=== PATIENT | male | born 1970 | race Caucasian/White ===

== ENCOUNTER 2025-01-13 09:10 | Emergency (ER) | payer OTHER, SELFPAY ==
--- NOTE | ~2025-01-13 | CT_ITS ---
EXAMINATION: CT lumbar spine wo con DATE: 01/13/2025 10:58 INDICATION: Low back pain and left SI joint pain TECHNIQUE: Computed tomography (CT) of the lumbar spine was performed without intravenous contrast. T he dose-length product was 736.35 mGy-cm. Automated exposure control and iterative reconstruction rivka hnique were employed. COMPARISON: None FINDINGS: Mild dextrocurvature of the lumbar spine. Vertebral body heights are maintained. No signifi cant disc narrowing. Vertebral body heights are maintained. There is grade 1 spondylolisthesis at L5- S1 secondary to bilateral spondylolysis. There are nonobstructing bilateral renal stones. Mild annula r disc bulging at L3-4 without significant spinal stenosis. There is mild multilevel facet hypertroph y at L5-3-4 through L5-S1. At L4-5 there is mild annular disc bulging without significant spinal sten osis. At L5-S1 there is mild annular disc bulging without significant spinal stenosis. IMPRESSION: 1. No acute abnormality of the lumbar spine. 2: Moderate lumbar spondylosis with grade 1 spondylolisthesis at L5-S1. Reviewed, dictated and finalized at location A.
[2025-01-13 09:20] VITALS: BP 166/88; PULSE 92; RESP 16; TEMP 36.7; O2SAT 97
--- OUTSIDE RECORDS SUMMARY | 2025-01-13 10:09 | XMS_ITS | Clinical Summary ---
Author Organization [facility] youwho Address [address] [place] [address] Care Team Providers Care Behavioral Psychologist Name Role Phone Unavailable Primary Care Provider Unavailabl e Source Comments [facility],non-owned Affiliates and Associated Physician Practices is amultiple site organization consisting of ambulatory clinics and hospital sitesin [place], [place], [place]. This disclosure is being madepursuant to the Care Everywhere program and may not contain all information available regarding this patient. Last updated 18.[facility] youwho Allergies Active Allergy Reactions Criticality Noted Date Comments Hmg-Coa-R Inhibitors Myalgias 07/03/2021 Contrast-Iodinated Agents For Ct/Other Cardiac Injury High 10/13/2024 Cardiac arrest 2x. Premedicated and had cardiac arrest. Nsaids GI Discomfort Low 07/20/2014 Other reaction(s): Dyspepsia, GI upset GI upset from Ibuprofen GI upset from Ibuprofen Shellfish-Derived Products Anaphylaxis High 01/18/2010 cardiac arrest Medications * Be aware that medications may not be up to date on this document. Alwaysverify current medications with the patient. HYDROcodone-ac etaminophen ([place]) 5-325 MG tabletIndicati ons:Infected dental caries Take 1 (one) tablet by mouth every 6 hours as needed for Pain 12 tablet 5 Active levothyroxine (Synthroid) 100 MCG tablet Take by mouth. Active amLODIPine (Norvasc) 10 MG tablet Take 1 (one) tablet by mouth 5 Active cyclobenzaprin e (Flexeril) 10 MG tablet Take 1 (one) tablet by mouth 5 Active Genvoya [phone] MG TABS tablet TAKE 1 TABLET DAILY WITH A MEAL Active Jardiance 25 MG tablet Take 1 (one) tablet by mouth 5 Active ezetimibe (Zetia) 10 MG tablet Take 1 (one) tablet by mouth 5 Active fenofibrate (Lofibra) 160 MG tablet Take 1 (one) tablet by mouth 5 Active gabapentin (Neurontin) 100 MG capsule Take by mouth A ctive hydroCHLOROthi azide (Hydrodiuril) 25 MG tablet Take 1 (one) tablet by mouth 5 Active Lantus SoloStar pen Inject 10 (ten) Units subcutaneously 5 Active TRUEplus 5-Bevel Pen [place] 32G X 4 MM MIS USE TO ADMINISTER INSULIN DAILY PRESCRIBED 5 Active OneTouch UltraSoft 2 Lancets MISC 3 (THREE) TIMES DAILY 5 Active Tradjenta 5 MG tablet Take 1 (one) tablet by mouth 5 Active metFORMIN (Glucophage) 1000 MG tablet Take 1 (one) tablet by mouth 5 Active Multiple Vitamin (Multi-Vitamin ) TABS Take 1 (one) tablet by mouth once daily Active pantoprazole EC (Protonix) 20 MG tablet Take 1 (one) tablet by mouth 5 Active gabapentin (Neurontin) 300 MG capsule Take 1 (one) capsule by mouth 5 Active Active Problems Problem Noted Date Diagnosed Date Infection due to ESBL-producing Escherichia coli 11/28/2024 Paralytic ileus 11/28/2024 Tobacco user 11/28/2024 Umbilical hernia without obstruction and without gangrene 11/28/2024 Traumatic complete tear of right rotator cuff History of stroke 05/07/2024 Intractable headache 04/19/2024 Muscle spasm 10/13/2023 Overview (11/28/2024): Pain on R side of neck, and base of the skull, comes and goes, frequency 5x a week, duration lasting an hour to several hours, starts really slow, gets instead, afraid that rubbing the neck may give him a stroke. It's been happening for 2 months. No history of trauma. R side of the neck feels tight. Able to work through it when at work. No numbness or tingling. Meds tried for this: tylenol, ibuprofen but aware he was advised to avoid nsaids; tried lidocaine but it would stick. Takes invokana, hctz, and 48 oz of caffeine. Testicular mass 10/13/2023 Overview (11/28/2024): About 3 months ago noticed a knot on his R testicle. Not painful, he's unsure if he's growing. No unplanned weight loss. Chronic pain of both knees 04/28/2023 Intracranial hemorrhage 03/11/2023 Lumbar degenerative disc disease 08/28/2022 Sprain of calcaneofibular ligament of right ankl e 11/03/2020 Essential hypertension 04/17/2020 Overview (11/28/2024): BP goal < 130/80 LDL goal < 100 Meds: Hydrochlorothiazide 25 mg daily Labs: BMP q 6 months, CBC yearly Diet: Heart healthy, DASH, Mediterranean Visit frequency: Every 3-6 months Next steps: Add calcium channel angela for blood pressure is uncontrolled or above 150/90. If nursing adjusts medication based on care plan orders, have patient follow up with office visit with THELMA or MD in 2 weeks. Gastric diverticulum 04/09/2020 Overview (11/28/2024): 04/09/20 MRI MRCP: 3 cm gastric diverticulum posterior to the fundus of the stomach Pseudocyst of pancreas 04/09/2020 Overview (11/28/2024): 04/09/2020 MRI MRCP:10 mm heterogeneous high T2 signal nonenhancing lesion anterior to the tail of the pancreas, possibly a developing pseudocyst Asymptomatic HIV infection 12/14/2019 Hyperlipidemia associated with type 2 diabetes m ellitus 12/14/2019 Hypertension associated with type 2 diabetes aguilar litus 12/14/2019 S/P laparoscopic hernia repair 04/09/2018 Pain in right shoulder 01/04/2018 Overview (11/28/2024): Ongoing issue per patient and plans to follow-up with Ortho Muscle pain, lumbar 12/04/2016 Pulmonary nodule, right 12/04/2016 Type 2 diabetes mellitus 02/13/2016 Type 2 diabetes mellitus wit h hyperglycemia, with long-term current use of insulin 02/13/2016 Overview (11/28/2024): BP goal < 130/80 LDL goal < 100 Meds: Glipizide 5 mg daily before meal; metformin 1000 mg b.i.d. Labs: BMP q 6 months, CBC yearly Diet: Heart healthy, DASH, Mediterranean Visit frequency: Every 3-6 months Next steps: Increased glipizide 5 mg 2 times daily If nursing adjusts medication based on care plan orders, have patient follow up with office visit with THELMA or MD in 2 weeks. A1C: Lab Results Component Value Date/Time GLYCO HB A1C 9.6 (A) 05/23/2020 09:21 AM GLYCO HB A1C 9.1 (A) 04/08/2020 09:48 AM GLYCO HB A1C 6.7 07/02/2019 08:16 AM History of pulmonary embolism 11/07/2015 Malignant neoplasm of lateral wall of bladder Suspected sleep apnea 06/22/2015 Partial tear of right rotator cuff 07/13/2014 Hypothyroidism 05/25/2014 Hypothyroidism 05/25/2014 Overview (11/28/2024): History of hypothyroidism currently controlled with levothyroxine 100 mcg tablets taken daily TSH: Lab Results Component Value Date/Time TSH 1.430 07/02/2019 08:16 AM CAD (coronary artery disease) 04/14/2014 Hyperlipidemia 04/14/2014 Overview (11/28/2024): Statin therapy: Zetia 10 mg taken daily; fenofibrate 160 mg daily mg Labs: FLP q 12 months, CMP if symptoms of myalgia, fatigue, fever, weakness, jaundice, abdominal pain LIPID: CHOLESTEROL, TOTAL Date Value Ref Range Status 05/23/2020 164 <200 mg/dL Final TRIGLYCERIDES Date Value Ref Range Status 05/23/2020 272 (A) <150 mg/dL Final HDL CHOLESTEROL Date Value Ref Range Status 05/23/2020 33 (L) 40 - 59 mg/dL Final LDL CHOLESTEROL Date Value Ref Range Status 05/23/2020 77 <100 mg/dL Final Obesity 04/14/2014 HIV disease 01/18/2010 Resolved Problems Problem Noted Date Diagnosed Date Resolved Date Acute constipation 11/28/2024 Encounters Date Type Department Care Team Description 11/28/2024 3:27 PM CDT - 11/28/2024 11:59 PM CDT Hospital Encounter [facility] [address] [place] [address] Elva Ludwig, LICENSED INVESTMENT SALES ASSISTANT-SUPERVISOR CIGAR PROCESSING Urgent Care Discharge Disposition: Home or Self Care 11/28/2024 Travel 10/13/2024 11:36 AM CDT - 10/13/2024 1:13 PM CDT Emergency ER at [facility] [address] [place] [address] Rob Brewster MD Infected dental caries (Primary Dx) Discharge Disposition: Home or Self Care 10/13/2024 Travel from Last 3 Months Immunizations Immunization Administration Dates Next Due FLU VACCINE TRI IIV3 SPLIT P F IM (FLUVIRIN) 05/05/2024 HEP B VACCINE, PED/ADOL 08/31/2013,08/27/2013 INFLUENZA VACCINE, QUADR. (F LUZONE; FLULAVAL; FLUARIX; AFLURIA QUADRIVALENT; 6MO+), 0.5 ML (IIV4) 04/30/2023,04/11/2022,07/03/2021,04/08,07/02/2019,04/09/2018,04/10/2017 ,04/17/2016,05/12/2015,04/21/2014,03/10 MENINGOCOCCAL ACWY MENVEO 01/07/2019,07/02/2018 PNEUMOCOCCAL PPSV23 07/08/2022,04/17/2016 Pneumococcal Pcv13 Conj 05/05/2013 TDAP (7yrs+) 08/09/2021,04/05/2013 Social History Tobacco Use Types Packs/Day Years Used Date Smoking Tobacco: Never Smokeless Tobacco: Never Alcohol Use Standard Drinks/Week Comments Yes 0 (1 standard drink = 0.6 oz pur e alcohol) occ PHQ-2 Answer Date Recorded Patient Health Questionnaire-2 Score 0 11/28/2024 Sex and Gender Information Value Date Recorded Sex Assigned at Not on file Legal Sex Male 10:28 AM CDT Gender Identity Not on file Sexual Orientation Not on file Last Filed Vital Signs Vital Sign Reading Time Taken Comments Blood Pressure 124/73 11/28/2024 3:44 PM CDT Pulse 87 11/28/2024 3:44 PM CDT Temperature 37.1 C (98.7 F) 11/28/2024 3:44 PM CDT Respiratory Rate 18 11/28/2024 3:44 PM CDT Oxygen Saturation 97% 11/28/2024 3:44 PM CDT Inhaled Oxygen Concentration - - Weight 97.8 kg (215 lb 9.6 oz) 11/28/2024 3:44 P M CDT Height 180.3 cm (5' 11) 11/28/2024 3:44 PM CDT Body Mass Index 30.07 11/28/2024 3:44 PM CDT Plan of Treatment Health Maintenance Due Date Last Done Comments COLON MONITORING 1969 COLONOSCOPY - COLON CA SCREENING 1969 CT COLONOGRAPHY - COLON CA SCREENING 1969 FIT - COLON CA SCREENING 1969 FLEX SIG - COLON CA SCREENING 1969 COVID-19 VACCINE (#1) 1974 HEPATITIS C SCREENING 02/05/1987 HEPATITIS B VACCINE (1 of 3 - 19+ 3-dose series) 02/10/1988 08/31/2013, 08/27/2013 ZOSTER VACCINE (1 of 2) 02/10/1988 DIABETES-STATIN 2009 MENINGOCOCCAL GROUPS A/C/Y/W VACCINE (3 - Risk 2-dose series) 01/08/2024 01/07/2019, 07/02/2018 DIABETES RETINOPATHY SCREENING 11/28/2024 10/10/2015 DIABETES-FOOT EXAM WITH MONOFILAMENT 11/28/2024 INFLUENZA VACCINE (#1) 2025 , 04/30/2023, 04/11/2022, Additional history exists DIABETES-HGB A1C 04/05/2025 10/04/2024 DIABETES-SERUM CREATININE 04/19/20252023, 09/12/2015, 09/12/2015 COLOGUARD (AGES 45-75) - COLON CA SCREENING 08/06/2025 08/06/2022 Colorectal Cancer Screening 08/06/2025 DIABETES - URINE PROTEIN SCREENING 10/04/2025 10/04/2024 PNEUMOCOCCAL VACCINE 50+ (4 of 4 - PCV20 or PCV21) 07/08/2027 07/08/2022, 04/17/2016, 05/05/2013 DTAP/TDAP/TD VACCINES (3 - Td or Tdap) 08/10/2031 08/09/2021, 04/05/2013 DEPRESSION SCREENING Completed 11/28/2024 HIB VACCINE Aged Out No longer eligi ble based on patient's age to complete this topic HPV VACCINE Aged Out No longer eligi ble based on patient's age to complete this topic MENINGOCOCCAL (Group B) VACCINE SHARED DECISION-MAKING Aged Out No longer eligible based on patient's age to complete this topic Insurance MEDICAID - OUT OF STATE
--- OUTSIDE RECORDS SUMMARY | 2025-01-13 10:09 | XMS_ITS | Clinical Summary ---
Author Organization [facility] Address [address] [place] [address] Care Team Providers Care [employer] Combination Teacher Name Role Phone Chano Rosales MD Primary Care Provider Allergies Active Allergy Reactions Criticality Noted Date Comments Iodinated Contrast Media Anaphylaxis High 03/18/2019 Medications levothyroxine (SYNTHROID, LEVOXYL) 100 mcg tablet Take 100 mcg by mouth daily Active metFORMIN (GLUCOPHAGE) 500 mg tablet Take 500 mg by mouth 2 (two) times daily with meals Active gabapentin (NEURONTIN) 100 mg capsule Take by mouth Active cyclobenzaprine (FLEXERIL) 10 mg tablet Take 10 mg by mouth 3 (three) times daily as needed for Muscle spasms Active giqkzob-xtxt-up tricit-tenofova (GENVOYA) [phone] mg tab per tablet Take 1 Tab by mouth daily Active hydroCHLOROthia zide (HYDRODIURIL) 25 mg tablet Take 25 mg by mouth daily Active glipiZIDE (GLUCOTROL) 5 mg tablet Take 5 mg by mouth 2 (two) times daily Active ezetimibe-simva statin (VYTORIN) 10-10 mg per tablet Take 1 Tab by mouth every evening Active oxyCODONE-aceta minophen (PERCOCET) 5-325 mg per tablet Take 1 Tab by mouth every 6 (six) hours as needed for Pain 12 Tab 03/19/2019 Active Social History Tobacco Use Types Packs/Day Years Used Date Smoking Tobacco: Every Day Cigarettes Smokeless Tobacco: Never Sex and Gender Information Value Date Recorded Sex Assigned at Not on file Legal Sex Male 11:02 AM EDT Gender Identity Male 03/18/2019 11:11 AM EDT Sexual Orientation Not on file Last Filed Vital Signs Vital Sign Reading Time Taken Comments Blood Pressure 138/93 03/19/2019 3:15 PM EDT Pulse 81 03/19/2019 3:15 PM EDT Temperature 36.6 C (97.8 F) 03/19/2019 3:15 PM EDT Respiratory Rate 16 03/19/2019 3:15 PM EDT Oxygen Saturation 100% 03/19/2019 3:15 PM EDT Inhaled Oxygen Concentration - - Weight 117.9 kg (260 lb) 03/19/2019 1:56 PM EDT Height 180.3 cm (5' 11) 03/18/2019 11:07 AM EDT Body Mass Index 36.26 03/18/2019 11:07 AM EDT Plan of Treatment Not on file Insurance MEDICAID OUT OF STATE Care Teams High School Combination Teacher Relationship Specialty Start Date End Date Chano Rosales MD PCP - General Family Medicine 03/18/19
--- NOTE | 2025-01-13 10:12 | ED_ITS ---
HPI - Back Pain/Injury General Chief Complaint: Back Pain/Injury Stated Complaint: something popped while lifting 5 gallon bucket Time Seen by Provider: 01/13/25 09:21 History of Present Illness HPI Narrative: 54 year male presents to the emergency department for low back and left hip pain after an injury that occurred 1 hour prior to arrival. 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 He states he has had some numbness of the lateral aspect of his left thigh since. He denies saddle anesthesia, bowel or bladder incontinence or urinary retention, weakness of extremities, tingling or pain that radiates into his extremities. Patient is traveling here from [place], [place] for work. Related Data Allergies Allergy/AdvReac Type Severity Reaction Status Date / Time Iodinated Contrast Media Allergy Severe Unresponsiv Verified 01/13/25 09:29 e iodine Allergy Severe Unresponsiv Verified 01/13/25 09:29 e Review of Systems Review of Systems: All systems reviewed & are unremarkable except as noted in HPI and below Exam Narrative: GENERAL: Well-appearing, well-nourished, and in no acute distress. HEAD: Normocephalic, atraumatic. EYES: EOMI. ENT: Nares clear, no rhinorrhea or epistaxis. Mucous membranes moist. NECK: Supple. BACK: No midline thoracic spinous tenderness, crepitus, step-offs or deformities. Minimal tenderness to the lumbar spine and left paraspinous muscles. Significant point tenderness over the left SI with no overlying skin changes or deformities. CHEST: Clear to auscultation. No respiratory distress. HEART: Regular rate and rhythm. No murmur heard. Normal peripheral pulses. ABDOMEN: Soft, nontender, nondistended, normal active bowel sounds. EXTREMITIES: Normal range of motion. No edema. No saddle anesthesia. Reported decreased sensation on the lateral aspect of the left thigh, otherwise sensation is intact throughout. Strength 5/5 in BLE. DP pulses 2+. Negative straight leg raise bilaterally SKIN: Warm, dry, no rash. NEURO: No focal deficits. Alert and oriented x4. Course Vital Signs Vital signs: Vital Signs Temperature 98.1 F 01/13/25 09:20 Pulse Rate 92 01/13/25 09:20 Respiratory Rate 16 01/13/25 09:20 Blood Pressure 166/88 H 01/13/25 09:20 Pulse Oximetry 97 01/13/25 09:20 Oxygen Delivery Room Air 01/13/25 09:20 Temperature 98.1 F 01/13/25 09:20 Pulse Rate 92 01/13/25 09:20 Respiratory Rate 16 01/13/25 09:20 Blood Pressure 166/88 H 01/13/25 09:20 Pulse Oximetry 97 01/13/25 09:20 Oxygen Delivery Room Air 01/13/25 09:20 MDM - Back Pain/Injury MDM Narrative Medical decision making narrative: 54-year-old male presents to the emergency department for left lower back pain that started 1 hour prior to arrival after shaking a 5 gal bucket of paint. Triage vitals with blood pressure 166/88, otherwise unremarkable. Patient is afebrile nontoxic appearing. Exam is remarkable for were significant point tenderness over the left SI. He is endorsing decreased sensation over the lateral aspect of his left thigh, however remainder of his neurologic exam is unremarkable including strength and no saddle anesthesia. CT lumbar shows IMPRESSION: 1. No acute abnormality of the lumbar spine. 2: Moderate lumbar spondylosis with grade 1 spondylolisthesis at L5-S1. Patient updated on results. He was given IM Decadron, Toradol, Valium and lidocaine patch with improvement. On re-evaluation he is resting comfortably in exam bed. Given significant tenderness over the left SI, suspect acute inflammation of the SI joint is source of patient's pain. Will start him on short course of prednisone, lidocaine patches, Flexeril, Tylenol and have him follow-up with PCP. Discussed strict ED return precautions. Patient is agreeable with the plan verbalized understanding. Discharged in stable condition. Discharge Plan Discharge Clinical Impression: SI (sacroiliac) pain Low back strain Qualifiers: Encounter type: initial encounter Qualified Code(s): S39.012A - Strain of muscle, fascia and tendon of lower back, initial encounter Spondylolisthesis Qualifiers: Spinal region: lumbar Qualified Code(s): M43.16 - Spondylolisthesis, lumbar region Patient Disposition: Home Condition: Stable Instructions: Antibiotic Form, Acute Low Back Pain (ED), Lower Back Exercises (ED) Additional Instructions: Please take the medications as directed. Follow-up closely with the PCPs locally as discussed. Make sure to stay active and to the back exercises as discussed. Return to the emergency department if you develop a fever, numbness in your groin, you lose control of her bowel or bladder,, or other concerning symptoms. Patient Language: [place] Prescriptions: New prednisone 20 mg tablet 40 mg PO DAILY Qty: 10 0RF cyclobenzaprine 10 mg tablet 10 mg PO TID PRN (Reason: muscle spasm) Qty: 14 0RF lidocaine 5 % adhesive patch,medicated 1 patch topical DAILY Qty: 15 0RF Rx Instructions: leave on most painful area for up to 12 hrs. do not use more than 1 patch in a 24-hour period. acetaminophen 500 mg capsule 500 mg PO Q6H PRN (Reason: pain) Qty: 14 0RF Follow-up/Referrals: PHYSICIAN,MOBILITY ENGINEER [Primary Care Provider] -
[2025-01-13] MEDS: LIDOCAINE 5% PATCH 1 PATCH TRANSDERM (10:27)
[2025-01-13] MEDS: KETOROLAC 30 MG/ML VIAL (*BKC) IM (10:28)
[2025-01-13] MEDS: diazePAM INJ (*CRX) 10 MG/2 ML SYRINGE 5 MG IM (10:29)
[2025-01-13] MEDS: dexAMETHasone SOD PHOS INJ 10 MG/ML 1 ML VIAL IM (10:29)
[2025-01-13 11:25] VITALS: BP 139/88; PULSE 82; RESP 16; O2SAT 100
== END 2025-01-13 12:03 | disposition home or self-care (01) ==
PROVIDERS: Emergency Provider Physician Assistant
DX: S39.012A Strain of muscle, fascia and tendon of lower back, initial encounter (principal); M47.816 Spondylosis without myelopathy or radiculopathy, lumbar region; M43.16 Spondylolisthesis, lumbar region; X50.9XXA Other and unspecified overexertion or strenuous movements or postures, initial encounter
CPT/HCPCS: 72131; 96372; 99284; A9270; J1100; J1885; J3360